=== PATIENT | female | born 1995 | race Caucasian/White ===

== ENCOUNTER 2018-05-08 05:00 | Emergency (ER) | payer SELFPAY ==
[~2018-05-08] VITALS: Ht 160 cm; Wt 64.5 kg
[2018-05-08 05:20] VITALS: BP 134/89; PULSE 110; RESP 20; Ht 160 cm; Wt 64.5 kg
[2018-05-08] MEDS ORDERED: ONDANSETRON (ODT) 4 MG TAB ODT STA (08:00)
--- NOTE | 2018-05-08 08:03 | ERD ---
ER Documentation Chief Complaint Chief Complaint painful/frequent urination x 4 days, also c/o yellowish vaginal discharge HPI This is a 22-year-old female presents to the ED with history of dysuria, frequency, urgency times 4 days. She also reports a yellow vaginal discharge for the past 3 days. She states she has a history of chlamydia during her first and states today's symptoms are similar. She is here with her partner whom she is sexually active with, without protection. She states her last menstrual cycle was over a month ago and does not know if she is . She also reports feeling nauseous and some lower back pain. Denies any flank pain, fevers, chills, abdominal pain or any other symptoms. ROS All systems reviewed and are negative except as per history of present illness. Medications Home Meds Active Scripts Cephalexin* (Keflex*) 500 Mg Capsule, 500 MG PO QID for 5 Days, CAP Prov:SHARON CARRERA-C 05/08/18 Allergies Allergies: Coded Allergies: No Known Drug Allergies (Verified Allergy, Unknown, 05/08/18) PMhx/Soc Hx Alcohol Use: No Hx Substance Use: No Hx Tobacco Use: No Smoking Status: Never smoker Physical Exam Vitals Vital Signs Date Temp Pulse Resp B/P (MAP) Pulse Ox O2 O2 Flow FiO2 Time Delivery Rate 05/08/18 98.0 110 20 134/89 98 05:20 (104) Physical Exam Const: No acute distress Head: Atraumatic Eyes: Normal Conjunctiva ENT: Normal External Ears, Nose and Mouth. Neck: Full range of motion. No meningismus. Resp: Clear to auscultation bilaterally Cardio: Regular rate and rhythm, no murmurs Abd: Soft, non tender, non distended. 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 Bimanual: No adnexal masses or tenderness, No CMT Skin: No petechiae or rashes Back: No midline or flank tenderness Ext: No cyanosis, or edema Neur: Awake and alert Psych: Normal Mood and Affect Results 24 hrs Laboratory Tests Test 05/08/18 08:03 05/08/18 08:09 05/08/18 10:22 Urine Color YELLOW Urine Clarity SLIGHTLY CLOUDY Urine pH 7.0 Urine Specific Tea 1.014 Urine Ketones NEGATIVE mg/dL Urine Nitrite NEGATIVE mg/dL Urine Bilirubin NEGATIVE mg/dL Urine Urobilinogen NEGATIVE mg/dL Urine Leukocyte Esterase 2+ Ankit/ul Urine Microscopic RBC 2 /HPF Urine Microscopic WBC 4 /HPF Urine Squamous Epithelial Cells MODERATE /HPF Urine Bacteria FEW /HPF Urine Mucus FEW /HPF Urine Hemoglobin NEGATIVE mg/dL Urine Glucose NEGATIVE mg/dL Urine Total Protein NEGATIVE mg/dl Urine Test NEGATIVE POC Beta HCG, Qualitative NEGATIVE Rapid Plasma Reagin NONREACTIVE HIV (1&2) Antibody NEGATIVE Current Medications Medications Dose Sig/Rachel Start Time Status Last (Trade) Ordered Route PRN Stop Time Admin Dose Reason Admin Ondansetron 4 mg ONCE STAT 05/08/18 DC 05/08/18 HCl (Zofran ODT 08:00 08:38 Odt) 05/08/18 08:01 1,000 mg ONCE STAT 05/08/18 DC 05/08/18 Azithromycin PO 09:54 10:41 (Zithromax) 05/08/18 09:57 Ceftriaxone 250 mg ONCE STAT 05/08/18 DC 05/08/18 Sodium IM 09:54 10:41 (Rocephin) 05/08/18 09:57 Procedures/MDM LABS & DIAGNOSTIC IMAGING: RPR: negative HIV ab: negative UA: + leuk esterase, no nitrites, no hematuria or pyuria Urine hgc: negative [place]: negative Ucx: pending GC/CT NAAT: pending ED COURSE: The patient was given IM Rocephin and 1g Azithromycin, PO Zofran The medication was well tolerated with clinical improvement of her sx The patient remained stable throughout ED course. MEDICAL DECISION MAKIN yo sexually active F presents with urinary sx and vaginal discharge. Requesting STD screening and treatment. Labs as above negative for syphillis and HIV. UA concerning for possible UTI vs GC/CT. Will treat for both, given Azithromycin and Rocephin here and d/c home with rx keflex. Ucx pending. GC/CT NAAT pending. Pt is afebrile and VS are stable. No evidence of sepsis, severe dehydration, PID, nephrolithiasis or pyelonephritis. Recommended f/u with PCP in 2 days, return for any new or worsening sx. She is here with her partner who is also requesting treatment and testing for STDs. PRESCRIPTIONS: Keflex SPECIALIST FOLLOW UP RECOMMENDED: None Patient has been advised to follow up with primary care physician 1--2 days. Patient's blood pressure was elevated (>120/80) but appears stable without evidence of hypertension emergency or urgency. The patient was counseled about the risks of hypertension and urged to pursue outpatient monitoring and therapy within a week with their primary care physician Departure Diagnosis: Primary Impression: Possible exposure to STD Additional Impressions: UTI (urinary tract infection) Urinary tract infection type: site unspecified Hematuria presence: without hematuria Qualified Codes: N39.0 - Urinary tract infection, site not specified Vaginal discharge Condition: Stable Patient Instructions: If You Think You Have an STD, Understanding Urinary Tract Infections (UTIs) Referrals: [facility] REFERRAL L[facility] Additional Instructions: Call your primary care doctor TOMORROW for an appointment during the next 2-4 days and bring all the information and medications prescribed. If the symptoms get worse and your provider is unavailable, return to the Emergency Department immediately. SHARON CRARERA PA-C May 08, 2018 08:03
[2018-05-08] MEDS ORDERED: CEFTRIAXONE 250 MG INJ IM STA (09:54)
[2018-05-08] MEDS ORDERED: AZITHROMYCIN 250 MG TAB PO STA (09:54)
[2018-05-08] MEDS ORDERED: CEPH-443 PO (09:58)
== END 2018-05-08 11:22 | disposition home or self-care (01) ==
LOC: FTE 05:00
DX: N39.0 Urinary tract infection, site not specified (principal); N89.8 Other specified noninflammatory disorders of vagina
CPT/HCPCS: 81001; 81025; 84703; 86592; 86703; 87086; 87220; 87591; J0696; 96372